=== PATIENT | male | born 1955 | race Caucasian/White ===

== ENCOUNTER → 2016-06-22 | Outpatient (CLI) | payer OTHER | LOC: BMCIMAGING 09:23 | PROVIDERS: ATTEND Internal Medicine Rheumatology | DX: Z03.89 Encounter for observation for other suspected diseases and conditions ruled out (principal); M79.641 Pain in right hand; M19.042 Primary osteoarthritis, left hand ==

== ENCOUNTER → 2017-09-22 | Outpatient (CLI) | payer OTHER | LOC: BMCIMAGING 12:34 | PROVIDERS: ATTEND Internal Medicine Rheumatology | DX: M19.042 Primary osteoarthritis, left hand (principal); M19.041 Primary osteoarthritis, right hand ==

== ENCOUNTER → 2018-05-30 | Outpatient (CLI) | payer OTHER | LOC: BMCIMAGING 13:13 | PROVIDERS: ATTEND Internal Medicine | DX: R91.8 Other nonspecific abnormal finding of lung field (principal); R06.2 Wheezing ==